=== PATIENT | female | born 1965 | race Caucasian/White ===

== ENCOUNTER 2023-01-09 05:11 | Inpatient (IN) | payer OTHER, MEDICAID ==
[2023-01-09] VITALS (8 sets, daily range): BP systolic 134–157; PULSE 72–97; RESP 16–20; TEMP 97–98.2; O2SAT 93–98
[~2023-01-09] VITALS: Ht 162.6 cm; Wt 51.7 kg
[~2023-01-09 05:11] MED LIST: APIX2.5T; ERTA1VIA IJ; FOLI-43; LEVE500T9 PO; OXYIR5; SULF1TAB48 PO; TRAM50TA2
--- NOTE | 2023-01-09 05:52 | NUR ---
Patient to ER bed 04 to gown for evaluation. Side rails up. Report given to DARIANA BENDER.
--- NOTE | 2023-01-09 06:50 | NUR ---
20G IV PLACED IN LEFT AC, RIGHT SIDED NEPHROSTOMY NOTED, INTERVENTIONAL RADIOLODY CALLED FOR PLACEMENT OF NEPHROSTOMY, BLOOD AND URINE SENT TO LAB
[2023-01-09 06:57] LABS: BASOPHILS % (AUTO) 0.1 % (0.0-2.0); HEMOGLOBIN 11.9 g/dL (12.0-16.0); LYMPHOCYTES # (AUTO) 1.2 K/uL (1.0-5.5); MEAN CORPUSCULAR HEMOGLOBIN 32 pg (27-31); MEAN CORPUSCULAR HGB CONC 32 % (32-36); MEAN CORPUSCULAR VOLUME 99 fL (79.0-98.0); MONOCYTES # (AUTO) 0.7 K/uL (0.0-1.0); MONOCYTES % (AUTO) 5.4 % (1.7-9.3); NEUTROPHILS # (AUTO) 11.3 K/uL (1.8-7.7); NEUTROPHILS % (AUTO) 85.5 % (40.0-70.0); PLATELET COUNT (AUTO) 447 K/uL (130-430); RED BLOOD CELL COUNT(AUTO) 3.72 MIL/uL (4.2-6.2); RED CELL DISTRIBUTION WIDTH 19.3 % (9.0-15.0); WHITE BLOOD COUNT (AUTO) 13.2 K/uL (4.8-10.8)
[2023-01-09 06:58] LABS: BILIRUBIN,URINE 1+ (NEGATIVE); BLOOD, URINE 2+ (NEGATIVE); CLARITY/URINE SL CLOUDY (CLEAR); COLOR,URINE YELLOW (YELLOW); GLUCOSE,URINE TRACE (NEGATIVE); KETONES,URINE NEGATIVE (NEGATIVE); LEUKOCYTE ESTERASE ,URINE 2+ (NEGATIVE); NITRITE, URINE POSITIVE (NEGATIVE); PH,URINE 6.5 (5.0-8.0); PROTEIN URINE 1+ (NEGATIVE); UROBILINOGEN,URINE 0.2 (0.2-1.0)
--- NOTE | 2023-01-09 07:05 | NUR ---
RECEIVED REPORT & TRANSFER OF CARE. PATIENT RESTING IN BED, PARTNER AT BEDSIDE. AAOX4. VSS. PATIENT C/O RIGHT FLANK PAIN 04/14. MADE AWARE.
[2023-01-09 07:14] LABS: INR 1.1 (0.8-1.2)
[2023-01-09 07:19] LABS: ALBUMIN 2.6 g/dL (3.4-4.8); CALCIUM 8.2 mg/dL (8.4-11.0); CREATININE 1.74 mg/dL (0.55-1.30); TOTAL BILIRUBIN 0.3 mg/dL (0.0-1.0)
[2023-01-09 07:37] LABS: BACTERIA,URINE MANY /HPF (None Seen); MUCUS,URINE 1+ /LPF (None Seen); RBC,URINE 0-3 /HPF (0-3); WBC,URINE >100 /HPF (0-3)
[2023-01-09] MEDS ORDERED: PIPERACILLIN/TAZO 3.375 GM in NS 50 ML IV ONE (07:45)
[2023-01-09] MEDS ORDERED: NACL 0.9% 1,000 ML IV ONE (07:45)
[2023-01-09] MEDS ORDERED: MORPHINE 4 MG INJ. 4 MG/ML VIAL IVP ONE (08:00)
[2023-01-09] MEDS ORDERED: ONDANSETRON HCL 4 MG/2 ML VIAL IVP ONE (08:00)
[2023-01-09] MEDS ORDERED: PIPERACILLIN/TAZOBACTAM 3.375 GM/VIAL (ZOSYN) IV ONE (08:07)
--- NOTE | 2023-01-09 10:45 | NUR ---
Admit bed requested Patient will be admitted to care of Dr. BENITEZ. Admitted to MED SURG unit. Diagnosis SEPSIS UTI Inpatient (Yes or No) Y Observation (Yes or No) N Orientation concerns or request close to nursing station (Yes or No) N Covid Status N/A On vent or bipap N Isolation requirements N Needs a sitter N From Home (Yes or if No enter name of facility) Y Requires Dialysis (Yes or No) N Med Rec Completed (Yes of No) Y
[2023-01-09] MEDS ORDERED: NALOXONE HCL 0.4 MG/ML AMP (NARCAN) IVP PRN (14:00)
[2023-01-09] MEDS ORDERED: HYDROcodone/ACETAMIN 5-325 MG TAB (NORCO/ VICODIN) PO PRN (14:00)
[2023-01-09] MEDS ORDERED: ACETAMINOPHEN 500 MG TABLET PO PRN (14:00)
[2023-01-09] MEDS ORDERED: HYDROcodone/ACETAMIN 10-325 MG TAB PO PRN (14:00)
--- NOTE | 2023-01-09 14:56 | NUR ---
Patient arrived to room 117B and then transferred to 101B originally from ER. Patient came to hospital for c/o nephrostomy malfunction. She has colostomy bag. History of ovarian cancer and is now 95% in remission. Patient has a series of past medical issues such as appendix removed, colon removed, hysterectomy. She is alert and oriented x4. No neuro deficits. Patient respiration even and unlabored. On room air. Able to respond to instructions. Patient vital signs stable. She has a cane that she uses to ambulate from bed to chair. No specific skin issued noted. Will continue to monitor. Call light within reach.
[2023-01-09] MEDS ORDERED: LORazepam 2 MG/ML VIAL IVP PRN (17:30)
[2023-01-09] MEDS ORDERED: ACETAMINOPHEN 325 MG TABLET PO PRN (17:30)
[2023-01-09] MEDS ORDERED: ONDANSETRON HCL 4 MG/2 ML VIAL IVP PRN (17:30)
--- NOTE | 2023-01-09 17:48 | NUR ---
CONSULTATION: REASON FOR CONSULT: HARITHA CONSULTING PHYSICIAN: Karen TARIQ ORDERED BY: Cathi BENITEZ SPOKE WITH DR TARIQ HERSELF AND IS AWARE OF CONSULT [phone]
[2023-01-09] MEDS ORDERED: AMLO5TAB4 PO (17:52)
[2023-01-09] MEDS ORDERED: HYDR-4037 PO (17:52)
--- NOTE | 2023-01-09 17:52 | NUR ---
CONSULTATION: REASON FOR CONSULT: SEPSIS/UTI CONSULTING PHYSICIAN: Yamila EASTON ORDERED BY: Cathi BENITEZ SPOKE WITH NEEL [phone]
[2023-01-09] MEDS: hydrALAZINE HCL 10 MG TABLET PO SCH (18:19)
[2023-01-09] MEDS: amLODIPine BESYLATE 5 MG TABLET PO SCH (18:19)
[2023-01-09] MEDS: oxyCODONE HCL 5 MG TABLET PO PRN (18:20)
[2023-01-09] MEDS: D5/0.45 NS 1,000 ML IV SCH (18:27)
--- NOTE | 2023-01-09 18:56 | NUR ---
Report given to night baker RN for continuity of care. Patient stable condition.
--- NOTE | 2023-01-09 19:15 | NUR ---
change of shift.pt.presents quiescent affect.pt.presents re-admit status x3 days.to collect the mrsa nares swab sample. pt.presents iv access location lt.forearm intact;patent iv fluids infusing.pt.capable to ambulate;un-assisted w cane.respiratory status stable;un-labored@room air.call light/telephone w/in access of the pt.
--- NOTE | 2023-01-09 20:00 | NUR ---
pt.assessed.v/s assessed values wnl.no c/o pain,nausea.iv access intact;patent.pt.apprised snacks/beverages available w/in the shift.pt.requested snacks./juice provided per staff.pt.capable to reposition self.call light/telephone w/in access of the pt.
--- NOTE | 2023-01-09 21:00 | NUR ---
2100p medications administered:keppra;po.pt.capable to ingest the po medications w/out difficulty.no c/o pain,nausea. no requests posited@this hour.call light/telephone w/in access of the pt.
--- NOTE | 2023-01-09 22:00 | NUR ---
pt.assessed.pt.quiescent.per flacc pain mgx pt.absent facial grimaces/body posturing.pt.capable to reposition self. call light/telephone w/in access of the pt. Addendum: 01/10/23 at 0238 by Ayden Rocha RN pt.requested iv access off @this hour to facilitate sleeping and ambulation@night.i have acquiesed to the pt's requests.
[2023-01-09] MEDS: levETIRAcetam 500 MG TABLET PO SCH (22:10)
[2023-01-09] MEDS: APIXABAN 2.5 MG TABLET PO SCH (22:12)
[2023-01-10] VITALS: BP_SYST 148; PULSE 72; RESP 16; TEMP 98.1; O2SAT 96
--- NOTE | 2023-01-10 | NUR ---
pt.assessed.v/s assessed values wnl.no c/o pain,nausea.no requests posited@this hour.pt.capable to reposition self. call light/telephone w/in access of the pt.
--- NOTE | 2023-01-10 02:00 | NUR ---
pt.assessed.pt.quiescent.per flacc pain mgx pt.absent facial grimaces/body posturing.pt.capable to reposition self. call light/telephone w/in access of the pt.
[2023-01-10] MEDS: D5/0.45 NS 1,000 ML IV SCH ×3 (03:30→23:30)
--- NOTE | 2023-01-10 04:00 | NUR ---
pt.assessed.pt.quiescent.per flacc pain mgx pt.absent facial grimaces/body posturing.pt.absent respiratory distress. pt.capable to reposition self.call light/telephone w/in access of the pt.
--- NOTE | 2023-01-10 06:00 | NUR ---
pt.assessed.pt.quiescent.per flacc pain mgx pt.absent facial grimaces/body posturing.pt.absent respiratory distress. pt.capable to reposition self.call light/telephone w/in access of the pt.
[2023-01-10 06:26] LABS: BASOPHILS % (AUTO) 0.1 % (0.0-2.0); HEMATOCRIT 33.8 % (36-48); HEMOGLOBIN 10.8 g/dL (12.0-16.0); LYMPHOCYTES # (AUTO) 2.4 K/uL (1.0-5.5); MEAN CORPUSCULAR HEMOGLOBIN 33 pg (27-31); MEAN CORPUSCULAR HGB CONC 32 % (32-36); MEAN CORPUSCULAR VOLUME 103 fL (79.0-98.0); MONOCYTES # (AUTO) 0.7 K/uL (0.0-1.0); MONOCYTES % (AUTO) 6.2 % (1.7-9.3); NEUTROPHILS # (AUTO) 8.9 K/uL (1.8-7.7); NEUTROPHILS % (AUTO) 73.7 % (40.0-70.0); PLATELET COUNT (AUTO) 380 K/uL (130-430); RED CELL DISTRIBUTION WIDTH 21.6 % (9.0-15.0)
[2023-01-10 06:48] LABS: CALCIUM 8.2 mg/dL (8.4-11.0); CREATININE 1.19 mg/dL (0.55-1.30); PHOSPHORUS 4.2 mg/dL (2.7-4.5)
[2023-01-10 08:00] VITALS: BP_SYST 128; PULSE 78; RESP 18; TEMP 98.3; O2SAT 96; O2SAT 98
[2023-01-10] MEDS: levETIRAcetam 500 MG TABLET PO SCH ×2 (08:13→20:45)
[2023-01-10] MEDS: PANTOPRAZOLE SODIUM 40 MG TAB PO SCH (08:13)
[2023-01-10] MEDS: oxyCODONE HCL 5 MG TABLET PO PRN ×2 (08:13→20:39)
[2023-01-10] MEDS: amLODIPine BESYLATE 5 MG TABLET PO SCH (08:14)
[2023-01-10] MEDS: hydrALAZINE HCL 10 MG TABLET PO SCH (08:15)
[2023-01-10] MEDS: FOLIC ACID 1 MG TABLET PO SCH (08:15)
[2023-01-10] MEDS: NEPHROVITE, (FOLIC ACID/VITAMIN B COMP W-C 1 TAB) PO SCH (08:16)
[2023-01-10] MEDS: APIXABAN 2.5 MG TABLET PO SCH ×2 (08:20→20:49)
--- NOTE | 2023-01-10 08:45 | NUR ---
K+ 6.1, DR. BENITEZ MADE AWARE, NEW ORDERS OBTAINED FOR KAYEXALATE 30GM X 1
[2023-01-10] MEDS ORDERED: LOSARTAN POTASSIUM 25 MG TABLET PO SCH (09:00)
[2023-01-10] MEDS ORDERED: OMEPRAZOLE Non-Formulary 20 MG CAPSULE.DR PO SCH (09:00)
[2023-01-10] MEDS ORDERED: OLMESARTAN MEDOXOMIL 20 MG TABLET PO SCH (09:00)
[2023-01-10] MEDS ORDERED: SODIUM BICARBONATE 8.4% JECT 50 MEQ/50 ML SYRINGE IVP ONE (09:30)
[2023-01-10] MEDS ORDERED: SODIUM POLYSTYRENE SULFONATE 15 GM/60 ML UDBTL PO ONE (09:30)
[2023-01-10 14:21] LABS: CREATININE 1.37 mg/dL (0.55-1.30)
--- NOTE | 2023-01-10 14:31 | NUR ---
1300 K+ REDRAW 4.4, PER DR TARIQ NO NEED TO NOTIFY HER IT IS WNL
[2023-01-10 16:00] VITALS: BP_SYST 136; PULSE 72; RESP 18; TEMP 98; O2SAT 98
[2023-01-10 20:00] VITALS: O2SAT 98
[2023-01-10] MEDS: CARVEDILOL 6.25 MG TABLET (COREG) PO SCH (20:41)
[2023-01-11] VITALS (7 sets, daily range): BP systolic 119–134; PULSE 66–77; RESP 16–18; TEMP 97.6–98.6; O2SAT 97–100
[2023-01-11] MEDS: traMADol HCL HCL 50 MG TABLET (ULTRAM) PO PRN ×2 (02:59→21:10)
[2023-01-11 07:58] LABS: BASOPHILS % (AUTO) 0.4 % (0.0-2.0); EOSINOPHILS # (AUTO) 0.1 K/uL (0.0-0.4); HEMATOCRIT 32.5 % (36-48); HEMOGLOBIN 10.3 g/dL (12.0-16.0); LYMPHOCYTES # (AUTO) 2.2 K/uL (1.0-5.5); LYMPHOCYTES % (AUTO) 28.1 % (20.5-51.5); MEAN CORPUSCULAR HEMOGLOBIN 33 pg (27-31); MEAN CORPUSCULAR HGB CONC 32 % (32-36); MEAN CORPUSCULAR VOLUME 103 fL (79.0-98.0); MONOCYTES # (AUTO) 0.3 K/uL (0.0-1.0); NEUTROPHILS # (AUTO) 5.2 K/uL (1.8-7.7); NEUTROPHILS % (AUTO) 66.5 % (40.0-70.0); PLATELET COUNT (AUTO) 294 K/uL (130-430); RED BLOOD CELL COUNT(AUTO) 3.16 MIL/uL (4.2-6.2); RED CELL DISTRIBUTION WIDTH 21.2 % (9.0-15.0)
[2023-01-11 08:04] LABS: ALBUMIN 2.3 g/dL (3.4-4.8); CALCIUM 7.5 mg/dL (8.4-11.0); CREATININE 1.32 mg/dL (0.55-1.30); TOTAL BILIRUBIN 0.3 mg/dL (0.0-1.0)
[2023-01-11] MEDS: levETIRAcetam 500 MG TABLET PO SCH ×2 (08:35→21:05)
[2023-01-11] MEDS: CARVEDILOL 6.25 MG TABLET (COREG) PO SCH ×2 (08:35→21:06)
[2023-01-11] MEDS: FOLIC ACID 1 MG TABLET PO SCH (08:37)
[2023-01-11] MEDS: APIXABAN 2.5 MG TABLET PO SCH ×2 (08:37→21:07)
[2023-01-11] MEDS: PANTOPRAZOLE SODIUM 40 MG TAB PO SCH (08:37)
[2023-01-11] MEDS: NEPHROVITE, (FOLIC ACID/VITAMIN B COMP W-C 1 TAB) PO SCH (08:37)
[2023-01-11 08:38] LABS: WHITE BLOOD COUNT (AUTO) 7.8 K/uL (4.8-10.8)
[2023-01-11] MEDS: amLODIPine BESYLATE 5 MG TABLET PO SCH (08:38)
[2023-01-11 08:39] LABS: ERYTHROCYTE SEDIMENTATION RATE 33 MM/HR (0-20)
[2023-01-11] MEDS: hydrALAZINE HCL 10 MG TABLET PO SCH (08:39)
[2023-01-11] MEDS: oxyCODONE HCL 5 MG TABLET PO PRN ×2 (08:44→15:20)
--- NOTE | 2023-01-11 10:44 | NUR ---
CONSULTATION PAGED REASON FOR CONSULTATION: OBSTRUCTIVE UROPATHY/NEUROPATHY WAS CONSULT CALLED? Y PERSON WHO WAS NOTIFIED: VOICEMAIL LEFT FOR JOSE CHAU CONSULTING PHYSICIAN: JOSE CHAU THERAPIST RRT SPECIALTY: UROLOGY THERAPIST RRT PHONE NUMBER: [phone] REQUESTING PHYSICIAN: BERNICE GRANADOS
[2023-01-11] MEDS ORDERED: MEROPENEM 1 GM IVPB PREMIX 50 ML IV SCH (11:00)
[2023-01-11] MEDS: MEROPENEM 1 GM in NS 100 ML IV SCH ×2 (11:20→23:44)
[2023-01-11] MEDS: D5/0.45 NS 1,000 ML IV SCH ×2 (14:03→23:45)
--- NOTE | 2023-01-11 15:17 | NUR ---
Dietitian Recommendations * Continue renal standard diet * Send snacks BID: clay and silvina; POPPY entered in computrition GS, MPH, RD Please refer to RD Assessment for further details. Thanks! Addendum: 01/11/23 at [address] Amended: Links added.
--- NOTE | 2023-01-11 18:40 | NUR ---
Medicated for back pain twice with good results ,tolerating diet continue with plan of care.
[2023-01-12 00:32] VITALS: BP_SYST 154; PULSE 70; RESP 17; TEMP 97.4; O2SAT 99
[2023-01-12] MEDS ORDERED: PIPERACILLIN/TAZOBACTAM 3.375 GM/VIAL (ZOSYN) IV ONE (03:06)
[2023-01-12] MEDS: PIPERACILLIN/TAZO 3.375/DEX-IS 50 ML IV SCH ×4 (05:05→17:09)
[2023-01-12 05:27] LABS: BASOPHILS % (AUTO) 0.2 % (0.0-2.0); EOSINOPHILS # (AUTO) 0.1 K/uL (0.0-0.4); EOSINOPHILS % (AUTO) 1.8 % (0.0-4.0); ERYTHROCYTE SEDIMENTATION RATE 27 MM/HR (0-20); HEMATOCRIT 31.5 % (36-48); HEMOGLOBIN 10.2 g/dL (12.0-16.0); LYMPHOCYTES # (AUTO) 1.5 K/uL (1.0-5.5); LYMPHOCYTES % (AUTO) 27.7 % (20.5-51.5); MEAN CORPUSCULAR HEMOGLOBIN 33 pg (27-31); MEAN CORPUSCULAR HGB CONC 33 % (32-36); MEAN CORPUSCULAR VOLUME 100 fL (79.0-98.0); MONOCYTES # (AUTO) 0.1 K/uL (0.0-1.0); MONOCYTES % (AUTO) 1.2 % (1.7-9.3); NEUTROPHILS # (AUTO) 3.8 K/uL (1.8-7.7); NEUTROPHILS % (AUTO) 69.1 % (40.0-70.0); PLATELET COUNT (AUTO) 287 K/uL (130-430); RED BLOOD CELL COUNT(AUTO) 3.14 MIL/uL (4.2-6.2); RED CELL DISTRIBUTION WIDTH 21.2 % (9.0-15.0); WHITE BLOOD COUNT (AUTO) 5.6 K/uL (4.8-10.8)
[2023-01-12 05:59] LABS: ALBUMIN 2.2 g/dL (3.4-4.8); CALCIUM 7.4 mg/dL (8.4-11.0); CREATININE 0.96 mg/dL (0.55-1.30); PHOSPHORUS 3.4 mg/dL (2.7-4.5); TOTAL BILIRUBIN 0.3 mg/dL (0.0-1.0)
[2023-01-12 08:33] VITALS: BP_SYST 116; PULSE 66; RESP 18; TEMP 97.2; O2SAT 98
[2023-01-12] MEDS: APIXABAN 2.5 MG TABLET PO SCH ×2 (09:00→21:21)
[2023-01-12 11:10] VITALS: BP_SYST 117; PULSE 78; RESP 17; TEMP 97.8; O2SAT 99
[2023-01-12] MEDS: NEPHROVITE, (FOLIC ACID/VITAMIN B COMP W-C 1 TAB) PO SCH (13:20)
[2023-01-12] MEDS: levETIRAcetam 500 MG TABLET PO SCH ×2 (13:20→21:19)
[2023-01-12] MEDS: amLODIPine BESYLATE 5 MG TABLET PO SCH (13:22)
[2023-01-12] MEDS: FOLIC ACID 1 MG TABLET PO SCH (13:23)
[2023-01-12] MEDS: PANTOPRAZOLE SODIUM 40 MG TAB PO SCH (13:24)
[2023-01-12] MEDS: hydrALAZINE HCL 10 MG TABLET PO SCH (13:25)
[2023-01-12] MEDS: CARVEDILOL 6.25 MG TABLET (COREG) PO SCH ×2 (13:25→21:20)
[2023-01-12] MEDS: NORMAL SALINE 5 ML DISP.SYRIN IVF SCH ×2 (14:00→21:23)
[2023-01-12 17:01] VITALS: BP_SYST 125; PULSE 88; RESP 17; TEMP 97.8; O2SAT 97
--- NOTE | 2023-01-12 18:18 | NUR ---
No complaints,v/s stable ,continue with plan of care.
[2023-01-12 20:00] VITALS: BP_SYST 160; PULSE 68; RESP 17; TEMP 97.3; O2SAT 98
[2023-01-12 20:15] VITALS: O2SAT 98
[2023-01-12] MEDS: MEROPENEM 1 GM in NS 100 ML IV SCH (21:23)
[2023-01-12] MEDS: traMADol HCL HCL 50 MG TABLET (ULTRAM) PO PRN (22:28)
[2023-01-13 01:00] VITALS: BP_SYST 158; PULSE 59; RESP 16; TEMP 97.2; O2SAT 99
[2023-01-13] MEDS: MEROPENEM 1 GM in NS 100 ML IV SCH ×2 (05:31→16:15)
[2023-01-13] MEDS: NORMAL SALINE 5 ML DISP.SYRIN IVF SCH ×2 (05:31→14:00)
[2023-01-13] MEDS: traMADol HCL HCL 50 MG TABLET (ULTRAM) PO PRN (05:32)
[2023-01-13 05:50] LABS: BASOPHILS % (AUTO) 0.4 % (0.0-2.0); EOSINOPHILS # (AUTO) 0.1 K/uL (0.0-0.4); EOSINOPHILS % (AUTO) 2.2 % (0.0-4.0); HEMOGLOBIN 10.8 g/dL (12.0-16.0); LYMPHOCYTES # (AUTO) 1.2 K/uL (1.0-5.5); LYMPHOCYTES % (AUTO) 23.1 % (20.5-51.5); MEAN CORPUSCULAR HEMOGLOBIN 33 pg (27-31); MEAN CORPUSCULAR HGB CONC 34 % (32-36); MEAN CORPUSCULAR VOLUME 99 fL (79.0-98.0); MONOCYTES % (AUTO) 0.7 % (1.7-9.3); NEUTROPHILS # (AUTO) 3.9 K/uL (1.8-7.7); NEUTROPHILS % (AUTO) 73.6 % (40.0-70.0); PLATELET COUNT (AUTO) 269 K/uL (130-430); RED BLOOD CELL COUNT(AUTO) 3.23 MIL/uL (4.2-6.2); RED CELL DISTRIBUTION WIDTH 19.6 % (9.0-15.0); WHITE BLOOD COUNT (AUTO) 5.3 K/uL (4.8-10.8)
[2023-01-13 06:23] LABS: CREATININE 0.93 mg/dL (0.55-1.30)
[2023-01-13 08:00] VITALS: O2SAT 98
[2023-01-13 08:15] VITALS: BP_SYST 130; PULSE 76; RESP 18; TEMP 97.4
[2023-01-13 08:25] LABS: ERYTHROCYTE SEDIMENTATION RATE 40 MM/HR (0-20)
[2023-01-13] MEDS: APIXABAN 2.5 MG TABLET PO SCH (08:49)
[2023-01-13] MEDS: PANTOPRAZOLE SODIUM 40 MG TAB PO SCH (08:50)
[2023-01-13] MEDS: NEPHROVITE, (FOLIC ACID/VITAMIN B COMP W-C 1 TAB) PO SCH (08:50)
[2023-01-13] MEDS: FOLIC ACID 1 MG TABLET PO SCH (08:50)
[2023-01-13] MEDS: hydrALAZINE HCL 10 MG TABLET PO SCH (08:50)
[2023-01-13] MEDS: CARVEDILOL 6.25 MG TABLET (COREG) PO SCH (08:51)
[2023-01-13] MEDS: amLODIPine BESYLATE 5 MG TABLET PO SCH (08:52)
[2023-01-13] MEDS: levETIRAcetam 500 MG TABLET PO SCH (09:00)
--- NOTE | 2023-01-13 09:10 | NUR ---
SENT MRS JAIME'S PACKET AND ORDER OVER TO [facility] TO [facility] AT [phone]. WAITING TO HEAR BACK. Addendum: 01/13/23 at 1019 by Aby Barahona DP SENT MRS JAIME'S PACKET TO [facility] Addendum: 01/13/23 at 1629 by Aby Barahona DP SENT MRS JAIME PACKET TO [facility]
[2023-01-13] MEDS ORDERED: COR6.25 PO (09:55)
[2023-01-13] MEDS ORDERED: ERTA1VIA IJ (09:55)
[2023-01-13 12:00] VITALS: BP_SYST 140; PULSE 78; RESP 18; TEMP 97.2; O2SAT 99
[2023-01-13 16:00] VITALS: BP_SYST 133; PULSE 68; RESP 18; TEMP 97.4; O2SAT 99
--- NOTE | 2023-01-13 16:15 | NUR ---
Home Health will resume with [facility] Fkrcdg-[phone] and [facility] [phone] will deliver ABX at 10 PM tonight for start of care 01/14. Patient to be discharged to home after Invanz dose today and PICC line placement.
[2023-01-13 16:57] VITALS: BP_SYST 140; PULSE 78; RESP 18; TEMP 97; O2SAT 99
== END 2023-01-13 17:45 | disposition home health service (06) | DRG 871 ==
LOC: SED 05:11 → SMU 09:44
PROVIDERS: ADMIT Preventive Medicine Preventive Medicine/Occupational Environmental Medicine; ATTEND Preventive Medicine Preventive Medicine/Occupational Environmental Medicine
PROC: 05HY33Z Insertion of Infusion Device into Upper Vein, Percutaneous Approach (ICD-10-PCS; principal; 2023-01-13)
DX: A41.9 Sepsis, unspecified organism (principal); E43 Unspecified severe protein-calorie malnutrition; N17.0 Acute kidney failure with tubular necrosis; Z68.1 Body mass index [BMI] 19.9 or less, adult; C56.9 Malignant neoplasm of unspecified ovary; Z16.12 Extended spectrum beta lactamase (ESBL) resistance; N13.6 Pyonephrosis; T83.022A Displacement of nephrostomy catheter, initial encounter; N18.9 Chronic kidney disease, unspecified; D63.1 Anemia in chronic kidney disease; I12.9 Hypertensive chronic kidney disease with stage 1 through stage 4 chronic kidney disease, or unspecified chronic kidney disease; D75.839 Thrombocytosis, unspecified; C55 Malignant neoplasm of uterus, part unspecified; E87.5 Hyperkalemia; G89.4 Chronic pain syndrome; E83.51 Hypocalcemia; R73.9 Hyperglycemia, unspecified; B96.20 Unspecified Escherichia coli [E. coli] as the cause of diseases classified elsewhere; E83.39 Other disorders of phosphorus metabolism; Y83.8 Other surgical procedures as the cause of abnormal reaction of the patient, or of later complication, without mention of misadventure at the time of the procedure; Y92.89 Other specified places as the place of occurrence of the external cause; Z90.49 Acquired absence of other specified parts of digestive tract; Z93.3 Colostomy status; Z86.73 Personal history of transient ischemic attack (TIA), and cerebral infarction without residual deficits; Z79.899 Other long term (current) drug therapy; Z79.01 Long term (current) use of anticoagulants; Z92.21 Personal history of antineoplastic chemotherapy
CPT/HCPCS: 36415; 76376; 80048; 80053; 81000; 83605; 83735; 84100; 85025; 85610-TC; 85651-TC; 85730-TC; 87040; 87081; 87086; 99291; C1751; J0696; J2185; J2270; J2405; J2543; J7030; J7060

== ENCOUNTER 2023-11-03 04:39 | Inpatient (IN) | payer OTHER, MEDICAID ==
[~2023-11-03] VITALS: Ht 162.6 cm; Wt 52.2 kg
[~2023-11-03 04:39] MED LIST changes: +AMLO5TAB4 PO; +COR6.25 PO; +HYDR-2923 PO; -SULF1TAB48 PO
[2023-11-03 04:49] VITALS: BP_SYST 154; PULSE 90; RESP 18; TEMP 98.5; O2SAT 98
[2023-11-03] MEDS: MORPHINE 4 MG INJ. 4 MG/ML VIAL IVP ONE (05:23)
[2023-11-03] MEDS: HYDROmorphone 1 MG/ML INJ. CARTRIDGE IVP ONE ×2 (05:58→06:44)
[2023-11-03 06:16] LABS: BASOPHILS % (AUTO) 0.3 % (0.0-2.0); EOSINOPHILS # (AUTO) 0.1 K/uL (0.0-0.4); EOSINOPHILS % (AUTO) 1.2 % (0.0-4.0); HEMATOCRIT 24.6 % (36-48); HEMOGLOBIN 8.3 g/dL (12.0-16.0); LYMPHOCYTES # (AUTO) 1.4 K/uL (1.0-5.5); MEAN CORPUSCULAR HEMOGLOBIN 31 pg (27-31); MEAN CORPUSCULAR HGB CONC 34 % (32-36); MEAN CORPUSCULAR VOLUME 90 fL (79.0-98.0); MONOCYTES # (AUTO) 0.1 K/uL (0.0-1.0); MONOCYTES % (AUTO) 2.4 % (1.7-9.3); NEUTROPHILS % (AUTO) 65.1 % (40.0-70.0); PLATELET COUNT (AUTO) 120 K/uL (130-430); RED BLOOD CELL COUNT(AUTO) 2.73 MIL/uL (4.2-6.2); RED CELL DISTRIBUTION WIDTH 15.9 % (9.0-15.0); WHITE BLOOD COUNT (AUTO) 4.5 K/uL (4.8-10.8)
[2023-11-03 06:38] LABS: ALBUMIN 3.1 g/dL (3.4-4.8); BILIRUBIN,DIRECT 0.2 mg/dL (0.0-0.3); CALCIUM 7.6 mg/dL (8.4-11.0); CREATININE 1.37 mg/dL (0.55-1.30); POTASSIUM 3.5 mmol/L (3.5-5.1); TOTAL BILIRUBIN 0.6 mg/dL (0.0-1.0); TOTAL PROTEIN, SERUM 7.2 g/dL (6.4-8.3)
[2023-11-03 06:41] LABS: PROTHROMBIN TIME 10.2 SECS (9.5-12.5)
[2023-11-03] MEDS ORDERED: ceFAZolin SODIUM 1 GM VIAL ONE (07:30)
[2023-11-03] MEDS ORDERED: FURO20TA4 PO (08:51)
[2023-11-03] MEDS ORDERED: AMLO2.5T50 PO (08:51)
[2023-11-03] MEDS ORDERED: SODI325T PO (08:51)
[2023-11-03] MEDS ORDERED: MORP-93 PO (08:51)
[2023-11-03] MEDS ORDERED: LEVO112T5 PO (08:51)
[2023-11-03] MEDS ORDERED: AUG875 PO (08:51)
[2023-11-03] MEDS ORDERED: DEXA4TAB PO (08:51)
[2023-11-03] MEDS ORDERED: CIPR500T5 PO (08:51)
[2023-11-03] MEDS ORDERED: ONDA4TAB55 PO (08:51)
[2023-11-03] MEDS ORDERED: HYDR4TAB57 PO (08:51)
[2023-11-03] MEDS ORDERED: CARV3.1246 PO (08:51)
[2023-11-03] MEDS ORDERED: DULO60CA65 PO (08:55)
[2023-11-03] MEDS: MORPHINE 4 MG INJ. 4 MG/ML VIAL ONE (09:01)
[2023-11-03] MEDS: MORPHINE 4 MG INJ. 4 MG/ML VIAL IVP PRN (09:06)
[2023-11-03] MEDS ORDERED: PREG50CA64 PO (09:12)
[2023-11-03] MEDS ORDERED: [UNRECOGNIZED DRUG - CODE] PO (09:17)
[2023-11-03] MEDS ORDERED: SODI5POW2 PO (09:17)
[2023-11-03] MEDS ORDERED: PRED5DRO25 (09:17)
[2023-11-03] MEDS ORDERED: ERGO1250 PO (09:17)
[2023-11-03] MEDS: D5/0.45 NS 1,000 ML IV SCH (13:52)
[2023-11-03 16:59] VITALS: BP_SYST 145; PULSE 94; RESP 18; TEMP 97; O2SAT 96
[2023-11-04] VITALS (7 sets, daily range): BP systolic 137–153; PULSE 96–109; RESP 16–20; TEMP 97.3–99.1; O2SAT 97–99
[2023-11-04 05:26] LABS: BASOPHILS % (AUTO) 0.6 % (0.0-2.0); EOSINOPHILS # (AUTO) 0.2 K/uL (0.0-0.4); EOSINOPHILS % (AUTO) 4.9 % (0.0-4.0); LYMPHOCYTES # (AUTO) 0.9 K/uL (1.0-5.5); LYMPHOCYTES % (AUTO) 26.5 % (20.5-51.5); MEAN CORPUSCULAR HEMOGLOBIN 31 pg (27-31); MEAN CORPUSCULAR HGB CONC 34 % (32-36); MEAN CORPUSCULAR VOLUME 90 fL (79.0-98.0); MONOCYTES % (AUTO) 1.5 % (1.7-9.3); NEUTROPHILS # (AUTO) 2.2 K/uL (1.8-7.7); NEUTROPHILS % (AUTO) 66.5 % (40.0-70.0); PLATELET COUNT (AUTO) 95 K/uL (130-430); RED CELL DISTRIBUTION WIDTH 15.9 % (9.0-15.0); WHITE BLOOD COUNT (AUTO) 3.3 K/uL (4.8-10.8)
[2023-11-04 06:05] LABS: CALCIUM 7.3 mg/dL (8.4-11.0)
[2023-11-04 06:06] LABS: ALBUMIN 2.4 g/dL (3.4-4.8)
[2023-11-04 06:47] LABS: HEMATOCRIT 19.8 % (36-48); HEMOGLOBIN 6.7 g/dL (12.0-16.0)
[2023-11-04 08:08] LABS: TOTAL BILIRUBIN 1.1 mg/dL (0.0-1.0)
[2023-11-04 08:47] LABS: BILIRUBIN,URINE NEGATIVE (NEGATIVE); BLOOD, URINE 3+ (NEGATIVE); COLOR,URINE YELLOW (YELLOW); GLUCOSE,URINE NEGATIVE (NEGATIVE); KETONES,URINE NEGATIVE (NEGATIVE); LEUKOCYTE ESTERASE ,URINE 3+ (NEGATIVE); NITRITE, URINE NEGATIVE (NEGATIVE); PROTEIN URINE 1+ (NEGATIVE); UROBILINOGEN,URINE 0.2 (0.2-1.0)
[2023-11-04 08:48] LABS: CLARITY/URINE HAZY (CLEAR)
[2023-11-04 09:07] LABS: BACTERIA,URINE MANY /HPF (None Seen)
[2023-11-04 09:08] LABS: WBC,URINE 20-50 /HPF (0-3)
[2023-11-04] MEDS: cefTRIAXone 1 GM in D5W 50 ML IV SCH (12:00)
[2023-11-05] MEDS: HYDROmorphone 1 MG/ML INJ. CARTRIDGE IVP PRN (04:04)
[2023-11-05 05:42] LABS: BASOPHILS % (AUTO) 0.6 % (0.0-2.0); EOSINOPHILS # (AUTO) 0.1 K/uL (0.0-0.4); EOSINOPHILS % (AUTO) 4.5 % (0.0-4.0); LYMPHOCYTES # (AUTO) 0.8 K/uL (1.0-5.5); LYMPHOCYTES % (AUTO) 31.7 % (20.5-51.5); MEAN CORPUSCULAR HEMOGLOBIN 31 pg (27-31); MEAN CORPUSCULAR HGB CONC 34 % (32-36); MEAN CORPUSCULAR VOLUME 90 fL (79.0-98.0); MONOCYTES # (AUTO) 0.1 K/uL (0.0-1.0); MONOCYTES % (AUTO) 2.7 % (1.7-9.3); NEUTROPHILS # (AUTO) 1.6 K/uL (1.8-7.7); PLATELET COUNT (AUTO) 86 K/uL (130-430); RED BLOOD CELL COUNT(AUTO) 2.12 MIL/uL (4.2-6.2); RED CELL DISTRIBUTION WIDTH 15.8 % (9.0-15.0); WHITE BLOOD COUNT (AUTO) 2.6 K/uL (4.8-10.8)
[2023-11-05 06:16] LABS: ANION GAP 10 (5-15); CALCIUM 7.9 mg/dL (8.4-11.0); CARBON DIOXIDE 22 mmol/L (23-29); CHLORIDE 106 mmol/L (98-107); CREATININE 0.97 mg/dL (0.55-1.30); GFR AFRICAN AMERICAN 76 mL/min (>90); GLUCOSE 106 mg/dL (74-106); POTASSIUM 3.7 mmol/L (3.5-5.1); SODIUM SERUM 138 mmol/L (136-145); UREA NITROGEN, BLOOD 12 mg/dL (8-21)
[2023-11-05 06:58] LABS: GFR NON AFRICAN-AMERICAN 62 mL/min (>90)
[2023-11-05 08:00] VITALS: BP_SYST 159; PULSE 111; RESP 20; TEMP 97.4; O2SAT 98
[2023-11-05 08:04] LABS: HEMATOCRIT 19.1 % (36-48); HEMOGLOBIN 6.5 g/dL (12.0-16.0)
[2023-11-05 09:15] LABS: ERYTHROCYTE SEDIMENTATION RATE 21 MM/HR (0-20); NEUTROPHILS % (AUTO) 60.5 % (40.0-70.0)
[2023-11-05] MEDS ORDERED: ERGOCALCIFEROL 50000 UNIT PO SCH ×2 (10:00→10:45)
[2023-11-05] MEDS ORDERED: SODIUM ZIRCONIUM CYCLOSILICATE PO SCH (10:00)
[2023-11-05] MEDS ORDERED: NALOXONE HCL 0.4 MG/ML AMP (NARCAN) IVP PRN (10:00)
[2023-11-05] MEDS ORDERED: HYDROmorphone 2 MG TAB PO PRN (10:00)
[2023-11-05] MEDS ORDERED: SODIUM BICARBONATE 325 MG TABLET PO ONE (10:30)
[2023-11-05] MEDS ORDERED: SODIUM BICARBONATE 650 MG TABLET PO ONE (10:30)
[2023-11-05] MEDS: DULoxetine HCL 30 MG CAPSULE.DR (CYMBALTA) PO ONE (12:01)
[2023-11-05] MEDS: SODIUM BICARBONATE 650 MG TABLET PO ONE (12:01)
[2023-11-05] MEDS: PREGABALIN 25 MG CAPSULE (LYRICA) PO ONE (12:01)
[2023-11-05] MEDS: FUROSEMIDE 20 MG TABLET PO ONE (12:02)
[2023-11-05] MEDS: LEVOTHYROXINE SODIUM 0.112 MG TABLET PO ONE (12:02)
[2023-11-05] MEDS: amLODIPine BESYLATE 5 MG TABLET PO ONE (12:03)
[2023-11-05] MEDS: MORPHINE SULFATE 30 MG TABLET.SA PO ONE (12:03)
[2023-11-05] MEDS: FOLIC ACID 1 MG TABLET PO ONE (12:04)
[2023-11-05 12:38] VITALS: BP_SYST 140; PULSE 96; RESP 19; TEMP 98.2; O2SAT 98
[2023-11-05 16:06] VITALS: BP_SYST 158; PULSE 101; RESP 20; TEMP 97.6; O2SAT 97
[2023-11-05 20:00] VITALS: BP_SYST 121; PULSE 129; RESP 18; TEMP 97.6; O2SAT 94
[2023-11-05] MEDS ORDERED: DECADRON 4 MG TABLET PO SCH (21:00)
[2023-11-05] MEDS ORDERED: PREGABALIN 25 MG CAPSULE (LYRICA) PO SCH (21:00)
[2023-11-05] MEDS ORDERED: hydrALAZINE HCL 10 MG TABLET PO PRN (21:00)
[2023-11-05] MEDS: MORPHINE SULFATE 30 MG TABLET.SA PO SCH (21:05)
[2023-11-05] MEDS: PREGABALIN 25 MG CAPSULE (LYRICA) PO SCH (21:05)
[2023-11-05] MEDS: levETIRAcetam 500 MG TABLET PO SCH (21:06)
[2023-11-05] MEDS: CARVEDILOL 3.125 MG TABLET (COREG) PO SCH (21:06)
[2023-11-06] VITALS (7 sets, daily range): BP systolic 100–115; PULSE 65–115; RESP 16–20; TEMP 96.8–97.3; O2SAT 95–100
[2023-11-06 05:47] LABS: ERYTHROCYTE SEDIMENTATION RATE 25 MM/HR (0-20)
[2023-11-06 05:51] LABS: BASOPHILS % (AUTO) 0.8 % (0.0-2.0); EOSINOPHILS # (AUTO) 0.1 K/uL (0.0-0.4); EOSINOPHILS % (AUTO) 4.1 % (0.0-4.0); HEMATOCRIT 25.6 % (36-48); HEMOGLOBIN 8.9 g/dL (12.0-16.0); LYMPHOCYTES # (AUTO) 0.2 K/uL (1.0-5.5); LYMPHOCYTES % (AUTO) 9.8 % (20.5-51.5); MEAN CORPUSCULAR HEMOGLOBIN 31 pg (27-31); MEAN CORPUSCULAR HGB CONC 35 % (32-36); MEAN CORPUSCULAR VOLUME 88 fL (79.0-98.0); MONOCYTES % (AUTO) 1.2 % (1.7-9.3); NEUTROPHILS # (AUTO) 1.4 K/uL (1.8-7.7); NEUTROPHILS % (AUTO) 84.1 % (40.0-70.0); PLATELET COUNT (AUTO) 50 K/uL (130-430); RED CELL DISTRIBUTION WIDTH 15.9 % (9.0-15.0)
[2023-11-06 06:11] LABS: TOTAL IRON BIND. CAPACITY 125 ug/dL (250-450)
[2023-11-06 06:47] LABS: ALBUMIN 1.9 g/dL (3.4-4.8); CALCIUM 7.3 mg/dL (8.4-11.0); CREATININE 1.12 mg/dL (0.55-1.30); POTASSIUM 3.2 mmol/L (3.5-5.1); TOTAL BILIRUBIN 0.8 mg/dL (0.0-1.0); TOTAL PROTEIN, SERUM 5.4 g/dL (6.4-8.3)
[2023-11-06 06:53] LABS: WHITE BLOOD COUNT (AUTO) 1.6 K/uL (4.8-10.8)
[2023-11-06 07:35] LABS: RETICULOCYTE COUNT 0.9 % (0.5-1.5)
[2023-11-06] MEDS ORDERED: MEPERIDINE HCL/PF 25 MG/ML DISP.SYRIN IVP PRN (08:30)
[2023-11-06] MEDS ORDERED: HYDROmorphone 1 MG/ML INJ. CARTRIDGE IVP PRN ×2 (08:30)
[2023-11-06] MEDS ORDERED: METOCLOPRAMIDE HCL 10 MG/2 ML VIAL IVP PRN (08:30)
[2023-11-06] MEDS: LR 1,000 ML IV SCH (08:30)
[2023-11-06] MEDS: ACETAMINOPHEN I.V. 1000 MG 100 ML IV ONE (08:45)
[2023-11-06] MEDS: LEVOTHYROXINE SODIUM 0.112 MG TABLET PO SCH (09:00)
[2023-11-06] MEDS ORDERED: amLODIPine BESYLATE 5 MG TABLET PO SCH (09:00)
[2023-11-06] MEDS: SODIUM BICARBONATE 650 MG TABLET PO SCH (09:00)
[2023-11-06] MEDS: FOLIC ACID 1 MG TABLET PO SCH (09:00)
[2023-11-06] MEDS: DULoxetine HCL 30 MG CAPSULE.DR (CYMBALTA) PO SCH (09:00)
[2023-11-06] MEDS: amLODIPine BESYLATE 5 MG TABLET PO SCH (09:00)
[2023-11-06] MEDS: FUROSEMIDE 20 MG TABLET PO SCH (09:00)
[2023-11-06] MEDS ORDERED: KCL 40 mEq in 100 mL (PREMIX) 100 ML IV ONE (10:00)
[2023-11-06 11:09] LABS: BASOPHILS % (AUTO) 0.9 % (0.0-2.0); EOSINOPHILS % (AUTO) 0.8 % (0.0-4.0); HEMATOCRIT 23.2 % (36-48); LYMPHOCYTES # (AUTO) 0.7 K/uL (1.0-5.5); LYMPHOCYTES % (AUTO) 22.9 % (20.5-51.5); MEAN CORPUSCULAR HEMOGLOBIN 31 pg (27-31); MEAN CORPUSCULAR HGB CONC 34 % (32-36); MEAN CORPUSCULAR VOLUME 89 fL (79.0-98.0); MONOCYTES # (AUTO) 0.3 K/uL (0.0-1.0); MONOCYTES % (AUTO) 8.7 % (1.7-9.3); NEUTROPHILS # (AUTO) 2.1 K/uL (1.8-7.7); NEUTROPHILS % (AUTO) 66.7 % (40.0-70.0); RED BLOOD CELL COUNT(AUTO) 2.59 MIL/uL (4.2-6.2); RED CELL DISTRIBUTION WIDTH 15.6 % (9.0-15.0); WHITE BLOOD COUNT (AUTO) 3.2 K/uL (4.8-10.8)
[2023-11-06 11:32] LABS: PLATELET COUNT (AUTO) 44 K/uL (130-430)
[2023-11-06] MEDS: CHOLECALCIFEROL (VITAMIN D3) 5,000 UNIT TABLET PO ONE (11:40)
[2023-11-06] MEDS: POTASSIUM CHLORIDE 40 MEQ in NS 250 ML IV ONE (12:06)
[2023-11-06] MEDS: TBO-FILGRASTIM 480 MCG/0.8 ML SYRINGE SUBCUT SCH (17:21)
[2023-11-06] MEDS: HEPARIN SODIUM,PORCINE 5,000 UNITS/ML VIAL SUBCUT SCH (22:20)
[2023-11-07] VITALS: BP_SYST 116; PULSE 69; RESP 16; TEMP 97.5; O2SAT 97
[2023-11-07 08:00] VITALS: BP_SYST 109; PULSE 98; RESP 18; TEMP 98.1; O2SAT 98
[2023-11-07 09:27] LABS: BASOPHILS % (AUTO) 0.1 % (0.0-2.0); LYMPHOCYTES # (AUTO) 0.4 K/uL (1.0-5.5); LYMPHOCYTES % (AUTO) 7.1 % (20.5-51.5); MEAN CORPUSCULAR HEMOGLOBIN 31 pg (27-31); MEAN CORPUSCULAR HGB CONC 35 % (32-36); MEAN CORPUSCULAR VOLUME 89 fL (79.0-98.0); MONOCYTES # (AUTO) 0.3 K/uL (0.0-1.0); MONOCYTES % (AUTO) 4.8 % (1.7-9.3); NEUTROPHILS # (AUTO) 5.1 K/uL (1.8-7.7); WHITE BLOOD COUNT (AUTO) 5.8 K/uL (4.8-10.8)
[2023-11-07 09:28] LABS: CALCIUM 7.7 mg/dL (8.4-11.0); CREATININE 1.21 mg/dL (0.55-1.30); POTASSIUM 3.6 mmol/L (3.5-5.1)
[2023-11-07 09:32] LABS: ERYTHROCYTE SEDIMENTATION RATE 26 MM/HR (0-20)
[2023-11-07 10:16] LABS: PLATELET COUNT (AUTO) 44 K/uL (130-430)
[2023-11-07] MEDS: CHOLECALCIFEROL (VITAMIN D3) 5,000 UNIT TABLET PO SCH (10:20)
[2023-11-07 12:58] VITALS: BP_SYST 98; PULSE 91; RESP 18; TEMP 98.2; O2SAT 98
[2023-11-07] MEDS: NORMAL SALINE 5 ML DISP.SYRIN IVF SCH (15:22)
[2023-11-07 16:50] VITALS: BP_SYST 100; PULSE 89; RESP 16; TEMP 98.2; O2SAT 97
[2023-11-07 20:00] VITALS: BP_SYST 111; PULSE 92; RESP 18; TEMP 97.7; O2SAT 97
[2023-11-07] MEDS ORDERED: MEROPENEM 500 MG in NS 50 ML IV SCH (22:00)
[2023-11-08] VITALS (7 sets, daily range): BP systolic 97–120; PULSE 80–92; RESP 15–18; TEMP 96.5–98.6; O2SAT 94–99
[2023-11-08] MEDS: MEROPENEM 500 MG VIAL IV ONE (00:13)
[2023-11-08] MEDS: MEROPENEM 1,000 MG in NS 50 ML IV SCH (00:33)
[2023-11-08 07:13] LABS: CALCIUM 7.9 mg/dL (8.4-11.0); CREATININE 1.11 mg/dL (0.55-1.30); POTASSIUM 3.4 mmol/L (3.5-5.1)
[2023-11-08 07:26] LABS: BASOPHILS % (AUTO) 0.3 % (0.0-2.0); EOSINOPHILS # (AUTO) 0.1 K/uL (0.0-0.4); EOSINOPHILS % (AUTO) 1.9 % (0.0-4.0); HEMATOCRIT 23.6 % (36-48); LYMPHOCYTES # (AUTO) 1.2 K/uL (1.0-5.5); LYMPHOCYTES % (AUTO) 20.7 % (20.5-51.5); MEAN CORPUSCULAR HEMOGLOBIN 31 pg (27-31); MEAN CORPUSCULAR HGB CONC 34 % (32-36); MEAN CORPUSCULAR VOLUME 90 fL (79.0-98.0); MONOCYTES # (AUTO) 0.3 K/uL (0.0-1.0); MONOCYTES % (AUTO) 4.5 % (1.7-9.3); NEUTROPHILS # (AUTO) 4.2 K/uL (1.8-7.7); NEUTROPHILS % (AUTO) 72.6 % (40.0-70.0); RED BLOOD CELL COUNT(AUTO) 2.63 MIL/uL (4.2-6.2); RED CELL DISTRIBUTION WIDTH 16.3 % (9.0-15.0); WHITE BLOOD COUNT (AUTO) 5.8 K/uL (4.8-10.8)
[2023-11-08 07:46] LABS: ERYTHROCYTE SEDIMENTATION RATE 23 MM/HR (0-20)
[2023-11-08 07:58] LABS: PLATELET COUNT (AUTO) 40 K/uL (130-430)
[2023-11-08] MEDS: MEROPENEM 1 GM in NS 100 ML IV SCH (08:09)
[2023-11-08] MEDS: HEPARIN SODIUM,PORCINE 5,000 UNITS/ML VIAL SUBCUT SCH (20:50)
[2023-11-09 00:30] VITALS: BP_SYST 111; PULSE 86; RESP 18; TEMP 97.9; O2SAT 99
[2023-11-09 05:58] LABS: EOSINOPHILS # (AUTO) 0.2 K/uL (0.0-0.4); MEAN CORPUSCULAR HGB CONC 34 % (32-36); MONOCYTES # (AUTO) 0.4 K/uL (0.0-1.0); MONOCYTES % (AUTO) 7.8 % (1.7-9.3); RED BLOOD CELL COUNT(AUTO) 2.62 MIL/uL (4.2-6.2); RED CELL DISTRIBUTION WIDTH 15.7 % (9.0-15.0)
[2023-11-09 06:38] LABS: ERYTHROCYTE SEDIMENTATION RATE 29 MM/HR (0-20)
[2023-11-09 06:43] LABS: ALBUMIN 1.9 g/dL (3.4-4.8); ANION GAP 10 (5-15); ASPARTATE AMINOTRANSFERASE 8 U/L (10-37); CARBON DIOXIDE 22 mmol/L (23-29); CHLORIDE 109 mmol/L (98-107); GFR AFRICAN AMERICAN 73 mL/min (>90); GLUCOSE 79 mg/dL (74-106); POTASSIUM 3.7 mmol/L (3.5-5.1); SODIUM SERUM 141 mmol/L (136-145); TOTAL BILIRUBIN 0.5 mg/dL (0.0-1.0); TOTAL PROTEIN, SERUM 5.4 g/dL (6.4-8.3); UREA NITROGEN, BLOOD 14 mg/dL (8-21)
[2023-11-09 06:44] LABS: GFR NON AFRICAN-AMERICAN 60 mL/min (>90)
[2023-11-09 06:46] LABS: ALANINE AMINOTRANSFERASE < 5 U/L (12-78); BASOPHILS % (AUTO) 0.7 % (0.0-2.0); EOSINOPHILS % (AUTO) 3.9 % (0.0-4.0); HEMATOCRIT 23.4 % (36-48); LYMPHOCYTES # (AUTO) 1.4 K/uL (1.0-5.5); LYMPHOCYTES % (AUTO) 29.5 % (20.5-51.5); MEAN CORPUSCULAR HEMOGLOBIN 30 pg (27-31); MEAN CORPUSCULAR VOLUME 89 fL (79.0-98.0); NEUTROPHILS # (AUTO) 2.7 K/uL (1.8-7.7); NEUTROPHILS % (AUTO) 58.1 % (40.0-70.0); WHITE BLOOD COUNT (AUTO) 4.7 K/uL (4.8-10.8)
[2023-11-09 07:06] LABS: PLATELET COUNT (AUTO) 34 K/uL (130-430)
[2023-11-09 07:43] VITALS: PULSE 82; O2SAT 99
[2023-11-09 08:00] VITALS: BP_SYST 108; PULSE 87; RESP 18; TEMP 97.6; O2SAT 98
[2023-11-09] MEDS ORDERED: HEPA500015 SUBCUT (10:24)
[2023-11-09] MEDS ORDERED: CHOL500013 PO (10:24)
[2023-11-09] MEDS: METHYLPREDNISOLONE SOD SUCC 40 MG/ML VIAL IVP ONE (11:00)
[2023-11-09 11:14] VITALS: BP_SYST 123; PULSE 127; RESP 16; TEMP 99.1; O2SAT 91
[2023-11-09] MEDS ORDERED: ERTA1VIA3 IV (13:25)
[2023-11-09 15:10] VITALS: BP_SYST 114; PULSE 85; RESP 16; TEMP 98.1; O2SAT 98
[2023-11-09] MEDS: methylPREDNISolone SOD SUCC/PF 62.5 MG/ML VIAL IVP SCH (16:04)
[2023-11-09 16:14] VITALS: BP_SYST 116; PULSE 82; TEMP 97.9; O2SAT 97
== END 2023-11-09 18:21 | DRG 853 ==
LOC: SED 04:39 → SMU 07:25
PROVIDERS: ADMIT Preventive Medicine Preventive Medicine/Occupational Environmental Medicine; ATTEND Preventive Medicine Preventive Medicine/Occupational Environmental Medicine
PROC: 30233N1 Transfusion of Nonautologous Red Blood Cells into Peripheral Vein, Percutaneous Approach (ICD-10-PCS; 2023-11-05)
PROC: 30233R1 Transfusion of Nonautologous Platelets into Peripheral Vein, Percutaneous Approach (ICD-10-PCS; 2023-11-05)
PROC: 0PSHXZZ Reposition Right Radius, External Approach (ICD-10-PCS; 2023-11-06)
PROC: 0QS634Z Reposition Right Upper Femur with Internal Fixation Device, Percutaneous Approach (ICD-10-PCS; principal; 2023-11-06 07:36)
DX: A41.9 Sepsis, unspecified organism (principal); E43 Unspecified severe protein-calorie malnutrition; S72.001A Fracture of unspecified part of neck of right femur, initial encounter for closed fracture; S52.611A Displaced fracture of right ulna styloid process, initial encounter for closed fracture; S52.571A Other intraarticular fracture of lower end of right radius, initial encounter for closed fracture; D61.818 Other pancytopenia; N17.9 Acute kidney failure, unspecified; N39.0 Urinary tract infection, site not specified; Z68.1 Body mass index [BMI] 19.9 or less, adult; B96.20 Unspecified Escherichia coli [E. coli] as the cause of diseases classified elsewhere; E83.39 Other disorders of phosphorus metabolism; E83.42 Hypomagnesemia; E83.51 Hypocalcemia; E87.6 Hypokalemia; E88.09 Other disorders of plasma-protein metabolism, not elsewhere classified; W18.39XA Other fall on same level, initial encounter; Y93.89 Activity, other specified; Y92.89 Other specified places as the place of occurrence of the external cause; Y99.8 Other external cause status; Z79.01 Long term (current) use of anticoagulants; Z93.3 Colostomy status; Z90.49 Acquired absence of other specified parts of digestive tract; Z86.73 Personal history of transient ischemic attack (TIA), and cerebral infarction without residual deficits; Z86.718 Personal history of other venous thrombosis and embolism; Z85.43 Personal history of malignant neoplasm of ovary; Z95.828 Presence of other vascular implants and grafts; Z93.6 Other artificial openings of urinary tract status; Z79.899 Other long term (current) drug therapy
CPT/HCPCS: 36415; 71045; 72192-TC; 73200-TC; 73502; 76000; 76001; 80048; 80053; 80076; 81000; 81001; 81015; 82272; 83540; 83550; 83735; 84100; 84484; 85025; 85044; 85610; 85651; 85730; 86870; 86886; 86900; 86901; 86920; 87081; 87086; 87186; 93005; 93306; 93970; 94010; 94070; 94760; 96374; 96375; 96376; 97116-GP; 97163-GP; 99285; C1713; C1776; J0131; J0690; J0696; J1030; J1100; J1170; J1447; J1644; J2185; J2270; J2274; J2405; J2704; J2930; J3010; J3465; J3480; J3490; J7050; J7060; J7120; P9021; P9034